=== PATIENT | male | born 1965 | race Hispanic/Latino ===

== ENCOUNTER 2023-01-27 18:31 | Inpatient (IN) | payer MEDICAID, OTHER ==
[~2023-01-27] VITALS: Ht 175.3 cm; Wt 64.9 kg
[2023-01-27] MEDS ORDERED: IOPAMIDOL 370 MG/ML 100 ML INFUS..BTL INJ ONE (19:09)
[2023-01-27 19:18] LABS: BASOPHILS # (AUTO) 0.1 (0.0-0.1); BASOPHILS % 1.1 % (0.0-1.0); EOSINOPHILS # (AUTO) 0.3 (0.0-0.4); EOSINOPHILS % 4.7 % (0.0-6.0); HEMATOCRIT 32.2 % (38.2-49.6); HEMOGLOBIN 10.3 g/dL (14.0-18.0); LYMPHOCYTES # (AUTO) 1.6 (1.0-3.2); LYMPHOCYTES % 24.2 % (18.0-39.1); MEAN CORPUSCULAR HEMOGLOBIN 30.3 pg (28-32); MEAN CORPUSCULAR VOLUME 94.7 fL (81-99); MONOCYTES # (AUTO) 0.8 (0.2-0.8); MONOCYTES % 11.4 % (4.4-11.3); NEUTROPHILS # (AUTO) 3.9 (2.1-6.9); NEUTROPHILS % 58.4 % (38.7-80.0); PLATELET COUNT 303 x10e3/uL (140-360); RED CELL DISTRIBUTION WIDTH 15.6 % (11.7-14.4)
[2023-01-27 19:25] LABS: AMPHETAMINES SCREEN,URINE NEGATIVE (NEGATIVE); BENZODIAZEPINES SCREEN,URINE NEGATIVE (NEGATIVE); PHENCYCLIDINE SCREEN,URINE NEGATIVE (NEGATIVE)
[2023-01-27 19:40] LABS: ALANINE AMINOTRANSFERASE 19 IU/L (0-55); ALBUMIN 3.4 g/dL (3.5-5.0); ALBUMIN/GLOBULIN RATIO 0.9 (0.8-2.0); ALKALINE PHOSPHATASE 57 IU/L (40-150); ANION GAP 12.8 mmol/L (8-16); BLOOD UREA NITROGEN 25 mg/dL (7-26); BUN/CREATININE RATIO 19 (6-25); CALCIUM 8.5 mg/dL (8.4-10.2); CARBON DIOXIDE 25 mmol/L (22-29); CHLORIDE 112 mmol/L (98-107); CREATINE KINASE 69 IU/L (30-200); CREATININE, SERUM 1.32 mg/dL (0.72-1.25); GLUCOSE 92 mg/dL (74-118); POTASSIUM 4.8 mmol/L (3.5-5.1); SODIUM 145 mmol/L (136-145)
[2023-01-27] MEDS ORDERED: KETOROLAC TROMETHAMINE 30 MG/ML VIAL IV STA (20:38)
[2023-01-27 21:31] LABS: INR 0.94; PROTHROMBIN TIME 13.1 seconds (11.9-14.5)
[2023-01-27] MEDS: SODIUM CHLORIDE 0.9% 1000ML 1,000 ML IV SCH (22:35)
[2023-01-27 23:50] VITALS: BP 149/91
[2023-01-28] VITALS (9 sets, daily range): BP systolic 132–161; BP diastolic 86–97
[2023-01-28 02:49] LABS: CREATINE KINASE 55 IU/L (30-200)
[2023-01-28] MEDS ORDERED: LEVOTHYROXINE75 MCG PO (03:07)
[2023-01-28] MEDS ORDERED: DEXILANT60 MG (03:07)
[2023-01-28] MEDS ORDERED: LEVOTHYROXINE100 MC1 IV (03:07)
[2023-01-28] MEDS ORDERED: VALPROIC A250 MG/5 M PO (03:07)
[2023-01-28] MEDS ORDERED: CLONIDINE HCL0.1 MG PO (03:07)
[2023-01-28] MEDS ORDERED: NYSTATIN100000 UNI PO (03:07)
[2023-01-28] MEDS ORDERED: LISINOPRIL2.5 MG PO (03:07)
[2023-01-28] MEDS ORDERED: QUETIAPINE FUM100 MG PO ×2 (03:07)
[2023-01-28] MEDS ORDERED: IBUPROFEN200 MG PO (03:07)
[2023-01-28] MEDS ORDERED: CATAPRES-TTS 11 EACH TD (03:07)
[2023-01-28] MEDS ORDERED: DOCUSATE SODIU100 MG PO (03:07)
[2023-01-28] MEDS ORDERED: REMERON15 MG PO (03:07)
[2023-01-28] MEDS ORDERED: HYDROXYZIN10 MG/5 ML PO (03:07)
[2023-01-28] MEDS ORDERED: GABAPENTIN250 MG/5 M PO (04:01)
[2023-01-28 06:06] LABS: BASOPHILS # (AUTO) 0.1 (0.0-0.1); BASOPHILS % 1.5 % (0.0-1.0); EOSINOPHILS # (AUTO) 0.3 (0.0-0.4); EOSINOPHILS % 6.1 % (0.0-6.0); HEMATOCRIT 32.3 % (38.2-49.6); HEMOGLOBIN 9.9 g/dL (14.0-18.0); LYMPHOCYTES # (AUTO) 1.5 (1.0-3.2); MEAN CORPUSCULAR HEMOGLOBIN 29.6 pg (28-32); MEAN CORPUSCULAR HGB CONC 30.7 g/dL (31-35); MEAN CORPUSCULAR VOLUME 96.7 fL (81-99); MONOCYTES # (AUTO) 0.7 (0.2-0.8); MONOCYTES % 14.9 % (4.4-11.3); NEUTROPHILS % 44.3 % (38.7-80.0); PLATELET COUNT 280 x10e3/uL (140-360); RED BLOOD COUNT 3.34 x10e6/uL (4.3-5.7); RED CELL DISTRIBUTION WIDTH 15.4 % (11.7-14.4)
[2023-01-28 07:11] LABS: ALBUMIN 2.8 g/dL (3.5-5.0); ALBUMIN/GLOBULIN RATIO 0.8 (0.8-2.0); ANION GAP 12.3 mmol/L (8-16); CALCIUM 8.3 mg/dL (8.4-10.2); CREATININE, SERUM 1.24 mg/dL (0.72-1.25); POTASSIUM 4.3 mmol/L (3.5-5.1)
[2023-01-28 07:35] LABS: CREATINE KINASE 49 IU/L (30-200)
[2023-01-28] MEDS: SODIUM CHLORIDE 0.9% 1000ML 1,000 ML IV SCH (07:37)
[2023-01-28] MEDS ORDERED: ACETAMINOPHEN 325 MG TAB PO PRN (10:45)
[2023-01-28] MEDS ORDERED: DIPHENHYDRAMINE HCL 25 MG CAP PO PRN (10:45)
[2023-01-28] MEDS ORDERED: ALBUTEROL/IPRATROPIUM 3 ML NEB NEB PRN (10:45)
[2023-01-28] MEDS ORDERED: MELATONIN 5 MG TABLET PO PRN (10:45)
[2023-01-28] MEDS ORDERED: DOCUSATE SODIUM 100 MG CAP PO PRN (10:45)
[2023-01-28] MEDS ORDERED: ONDANSETRON HCL INJ 2MG/ML 2ML 2 MG/ML VIAL IV PRN (10:45)
[2023-01-28] MEDS ORDERED: HYDRALAZINE HCL 20 MG/ML VIAL IV PRN (10:45)
[2023-01-28] MEDS ORDERED: LIDOCAINE 4% PATCH TP PRN (10:45)
[2023-01-28] MEDS ORDERED: DEXTROSE 50% SYRINGE 50 ML IV PRN (10:45)
[2023-01-28] MEDS ORDERED: SIMETHICONE 80 MG CHEW PO PRN (10:45)
[2023-01-28] MEDS ORDERED: POTASSIUM CHLORIDE 20 MEQ TAB CR PO PRN (10:45)
[2023-01-28] MEDS ORDERED: LISINOPRIL 2.5 MG TAB PO PRN (10:45)
[2023-01-28] MEDS ORDERED: BENZONATATE 100 MG CAP PO PRN (10:45)
[2023-01-28] MEDS ORDERED: ASPIRIN 81 MG CHEW TAB PO ONE (13:30)
[2023-01-28 14:58] LABS: CREATINE KINASE 49 IU/L (30-200)
[2023-01-28] MEDS: VALPROATE 250MG/5ML ORAL LIQ 5ml PO SCH (16:46)
[2023-01-28] MEDS: QUETIAPINE FUMARATE 100 MG TAB PO SCH (20:55)
[2023-01-28] MEDS: MIRTAZAPINE 15 MG TAB PO SCH (20:55)
[2023-01-28] MEDS: ATORVASTATIN 40 MG TAB PO SCH (20:55)
[2023-01-29] VITALS (7 sets, daily range): BP systolic 114–144; BP diastolic 76–99
[2023-01-29] MEDS: LEVOTHYROXINE SODIUM 100 MCG TAB PO SCH (06:01)
[2023-01-29 06:12] LABS: BASOPHILS # (AUTO) 0.1 (0.0-0.1); BASOPHILS % 1.3 % (0.0-1.0); EOSINOPHILS # (AUTO) 0.4 (0.0-0.4); EOSINOPHILS % 8.1 % (0.0-6.0); HEMATOCRIT 33.1 % (38.2-49.6); HEMOGLOBIN 10.4 g/dL (14.0-18.0); MEAN CORPUSCULAR HEMOGLOBIN 29.7 pg (28-32); MEAN CORPUSCULAR HGB CONC 31.4 g/dL (31-35); MEAN CORPUSCULAR VOLUME 94.6 fL (81-99); MONOCYTES # (AUTO) 0.6 (0.2-0.8); MONOCYTES % 13.4 % (4.4-11.3); NEUTROPHILS # (AUTO) 1.7 (2.1-6.9); PLATELET COUNT 305 x10e3/uL (140-360); RED CELL DISTRIBUTION WIDTH 14.8 % (11.7-14.4)
[2023-01-29 06:55] LABS: ANION GAP 12.4 mmol/L (8-16); CALCIUM 8.5 mg/dL (8.4-10.2); CHOL/HDL RATIO 5.8 (3.9-4.7); CREATININE, SERUM 1.19 mg/dL (0.72-1.25); PHOSPHORUS 4.2 MG/DL (2.3-4.7); POTASSIUM 4.4 mmol/L (3.5-5.1)
[2023-01-29 07:01] LABS: THYROID STIMULATING HORMONE 0.287 uIU/mL (0.350-4.940)
[2023-01-29] MEDS: ASPIRIN 81 MG ENTERIC COATED PO SCH (08:11)
[2023-01-29] MEDS: QUETIAPINE FUMARATE 100 MG TAB PO SCH ×2 (08:11→22:28)
[2023-01-29] MEDS: VALPROATE 250MG/5ML ORAL LIQ 5ml PO SCH ×2 (08:11→16:22)
[2023-01-29] MEDS: PANTOPRAZOLE SOD 40 MG TABEC PO SCH (08:11)
[2023-01-29] MEDS ORDERED: ASPIRIN81 MG PO (13:22)
[2023-01-29] MEDS ORDERED: PLAVIX75 MG PO (13:25)
[2023-01-29] MEDS ORDERED: LIPITOR20 MG PO (13:26)
[2023-01-29] MEDS: CLOPIDOGREL BISULFATE 75 MG TAB PO SCH (13:40)
[2023-01-29] MEDS ORDERED: ONDANSETRON HCL 4 MG ORAL DISINTEGRATING TAB PO PRN (14:00)
[2023-01-29] MEDS: ATORVASTATIN 40 MG TAB PO SCH (22:28)
[2023-01-29] MEDS: MIRTAZAPINE 15 MG TAB PO SCH (22:28)
[2023-01-30] VITALS: BP 100/70
[2023-01-30 04:00] VITALS: BP 108/79
[2023-01-30] MEDS: LEVOTHYROXINE SODIUM 100 MCG TAB PO SCH (05:52)
[2023-01-30 08:36] VITALS: BP 110/72
[2023-01-30 09:10] VITALS: BP 110/72
[2023-01-30] MEDS: QUETIAPINE FUMARATE 100 MG TAB PO SCH (09:14)
[2023-01-30] MEDS: ASPIRIN 81 MG ENTERIC COATED PO SCH (09:14)
[2023-01-30] MEDS: CLOPIDOGREL BISULFATE 75 MG TAB PO SCH (09:15)
[2023-01-30] MEDS: VALPROATE 250MG/5ML ORAL LIQ 5ml PO SCH (09:15)
[2023-01-30] MEDS: PANTOPRAZOLE SOD 40 MG TABEC PO SCH (09:15)
[2023-01-30 13:10] VITALS: BP 110/68
== END 2023-01-30 15:52 | disposition home or self-care (01) | DRG 69 ==
LOC: ER 18:35 → ERHOLD 21:35 → MED/SURG3 23:11 → OBSVTOIN 01-30 08:51
PROVIDERS: ADMIT Internal Medicine; ATTEND Internal Medicine
DX: G45.9 Transient cerebral ischemic attack, unspecified (principal); G81.94 Hemiplegia, unspecified affecting left nondominant side; F14.20 Cocaine dependence, uncomplicated; E03.9 Hypothyroidism, unspecified; I10 Essential (primary) hypertension; R56.9 Unspecified convulsions; Z79.899 Other long term (current) drug therapy; Z86.73 Personal history of transient ischemic attack (TIA), and cerebral infarction without residual deficits; F32.A Depression, unspecified; Z20.822 Contact with and (suspected) exposure to COVID-19
CPT/HCPCS: 36415; 70496; 70498; 70551; 80048; 80053; 80061; 80307; 80320; 82550; 82553; 82948; 83036; 83735; 84100; 84443; 84484; 85025; 85610; 85730; 93005; 93306; 95819; 99284; G0378; J1885; J7030; Q9967